=== PATIENT | male | born 1990 | race Caucasian/White ===

== ENCOUNTER 2017-02-19 00:38 | Emergency (ER) | payer SELFPAY ==
[~2017-02-19] VITALS: Ht 165.1 cm; Wt 77.1 kg
[2017-02-19 00:43] VITALS: BP 107/84
--- NOTE | 2017-02-19 01:15 | NUR ---
PATIENT AMBULATED TO ER BED 8.
--- NOTE | 2017-02-19 01:24 | NUR ---
PATIENT PRESENTS TO ED WITH C/O LEFT SHOULDER PAIN X 3 WEEK S/P FRIENDLY WRESTLING WITH FAMILY MEMBER. PT DENIES N/V/D; SKIN IS PINK/WARM/DRY; AAOX4 WITH EVEN AND STEADY GAIT; LUNGS CLEAR BL; HR EVEN AND REGULAR; PT DENIES ANY FEVER, CP, SOB, OR COUGH AT THIS TIME; PATIENT STATES PAIN OF 10/10 AT THIS TIME; VSS; PATIENT POSITIONED FOR COMFORT; HOB ELEVATED; BEDRAILS UP X2; BED DOWN. ER MD MADE AWARE OF PT STATUS.
--- NOTE | 2017-02-19 01:25 | NUR ---
PATIENT BEING EVALUATED BY DR. BLISS.
[2017-02-19 01:38] VITALS: BP 117/81
== END 2017-02-19 01:38 | disposition home or self-care (01) ==
LOC: MED 00:38
DX: S46.812A Strain of other muscles, fascia and tendons at shoulder and upper arm level, left arm, initial encounter (principal); X58.XXXA Exposure to other specified factors, initial encounter; Y93.72 Activity, wrestling; Y92.89 Other specified places as the place of occurrence of the external cause; Y99.8 Other external cause status
CPT/HCPCS: 73030; 99284